=== PATIENT | female | born 1950 | race Caucasian/White ===

== ENCOUNTER 2016-08-02 12:00 | Emergency (ER) | payer OTHER ==
[~2016-08-02] VITALS: Ht 157.5 cm; Wt 91.4 kg
[~2016-08-02 12:00] MED LIST: ANAS1TAB19 PO; ASPI81TA28 PO; BUPR75TA20 PO; CALCTAB5 PO; LORA-741 PO; METO25TA3 PO; MULT-513 PO; NXM/40 PO; SIMV40TA4 PO
[2016-08-02 12:10] VITALS: TEMP 37; Ht 157.5 cm; Wt 91.4 kg
[2016-08-02] MEDS ORDERED: CLB/200 PO (12:38)
--- NOTE | 2016-08-02 13:12 | EMERGENCY ROOM VISIT NOTE ---
History First contact with patient: 12:48 Chief Complaint: ABDOMINAL PAIN Stated Complaint: ABD PAIN Nursing Triage Summary: Triage Note: pt reports she was seen at [facility] this am for abd pain and sent to ed for further eval. pt reports she has had lower abd pain since night. pt reports nausea and diarrhea. History of Present Illness The patient is a 65 year old female who presents to the Emergency Room with complaints of abdominal pain Started 3 days ago in the bottom. Pain waxes and wanes with persistent dull pain that occasionally becomes sharp.. Exacerbated by walking, and increased intraabdominal pressure, with cough, urinating, Associated with bloating and increased flatus. No radiation of pain. Not affected by PO intake or bowel movement. A Tylenol taken initially with minimal relief Had chills on day one, but no measured temperature or night sweats. Her last bowel movement was this morning. She had bowel movement this morning and yesterday. Soft stools but not loose diarrhea. No blood Urination - no burning, some frequency, also has hematuria that she is aware of Nausea this morning, no vomiting, appetite remains ok. Daughter has diarrhea, other diarrhea No CP or dyspnea History of 3 c-sections Past Medical/Surgical History Medical Problems: (1) Breast cancer Social History Smoking Status: Never Smoker Housing Status: lives alone Occupation Status: retired Current/Historical Medications Scheduled Anastrozole (Arimidex), 1 TAB PO DAILY Aspirin (Aspirin Ec), 81 MG PO DAILY Bupropion (Wellbutrin), 75 MG PO DAILY Calcium (Caltrate), 1,200 MG PO DAILY Celecoxib (CeleBREX), 1 CAP PO PRN Ciprofloxacin Tab (Cipro), 500 MG PO BID Esomeprazole Magnesium (Nexium), 40 MG PO DAILY Metoprolol Succ (Toprol Xl) (Toprol-Xl), 12.5 MG PO DAILY Metronidazole (Flagyl), 500 MG PO TID Multivitamins/Minerals (Mvi With Minerals), 1 TAB PO DAILY Simvastatin (Zocor), 40 MG PO QPM Scheduled PRN Lorazepam (Ativan), 0.5 MG PO TID PRN for Anxiety Allergies Coded Allergies: Penicillins (Verified Allergy, Unknown, ., 01/03/14) Physical Exam Vital Signs Date Time Temp Pulse Resp B/P Pulse Ox O2 Delivery O2 Flow Rate FiO2 08/02/16 19:09 77 18 128/65 98 1/1/17 17:50 75 16 148/68 97 Room Air 08/02/16 15:09 68 16 160/91 99 Room Air 08/02/16 12:10 37.0 82 18 /155 95 Room Air Physical Exam GENERAL: alert, well appearing, well nourished, sitting in bed, no acute distress, non-toxic HEAD: Normocephalic, atraumatic. No sinus tenderness. EYES: PERRL, EOMI, normal conjunctiva OROPHARYNX: no exudate, no erythema, lips, buccal mucosa, and tongue normal and mucous membranes are dry NECK: supple, no nuchal rigidity, no adenopathy, non-tender LUNGS: Clear to auscultation. Normal chest wall mechanics, good air entry. No crepitations, crackles, or wheezes HEART: no murmurs, S1 normal and S2 normal CHEST: No reproducible tenderness. ABDOMEN: abdomen soft, non-distended, tenderness to palpation in LUQ and LLQ, as well as suprapubically, normo-active bowel sounds, no masses, no rebound or guarding. BACK: Back is symmetrical on inspection, no deformities, no midline tenderness, no CVA tenderness. SKIN: Warm, pink, dry. No erythema, rashes, or bruising. EXTREMITIES: Grossly normal. Moving all 4 limbs, strength 5/5. No pitting edema. Calves non tender. NEURO: Alert, Ox3. No focal deficits. Normal sensorium, cranial nerves II-XII grossly intact, normal speech. PSYCH: Mood and affect appropriate. Medical Decision & Procedures ER Provider Diagnostic Interpretation: CT SCAN OF THE ABDOMEN AND PELVIS WITH IV CONTRAST CLINICAL HISTORY: Left lower quadrant abdominal pain. COMPARISON STUDY: No priors. TECHNIQUE: Following the IV administration of 118 cc of Optiray 320, CT scan of the abdomen and pelvis is performed from the lung bases to the proximal femora. Images are reviewed in the axial, sagittal, and coronal planes. IV contrast was administered without complication. Automated dose control exposure was utilized. The examination is degraded by large body habitus, and by streak artifact from the body wall abutting the CT gantry. CT DOSE: 885.52 mGy.cm FINDINGS: Lung bases: The heart is normal in size and without pericardial effusion. The lung bases are clear. There is a large hiatal hernia with approximately half of the stomach located in the thoracic cavity. Liver: The contrast-enhanced liver is normal in size, contour, and attenuation. There is no intrahepatic biliary ductal dilatation. The hepatic veins and portal veins are patent. Gallbladder: Unremarkable. Spleen: Normal in size and attenuation. Pancreas: Unremarkable. Adrenal glands: Unremarkable. Kidneys: The contrast enhanced kidneys demonstrate mild cortical atrophy and are without hydronephrosis. The kidneys enhance symmetrically. Abdominal vasculature: The abdominal aorta is normal in course and caliber noting scattered foci of atherosclerotic calcification. Bowel: There is no bowel obstruction. There is moderate diverticulosis of left colon. There is wall thickening with significant associated pericolonic inflammatory stranding and trace fluid involving the proximal sigmoid colon consistent with acute diverticulitis. There is no evidence of diverticular abscess. The appendix is well-visualized and normal. Peritoneum: There is no intraperitoneal free air or abdominal ascites. There is a fat-containing umbilical hernia. Lymphadenopathy: None. Pelvic viscera: The bladder is decompressed and grossly unremarkable. The uterus and adnexa are normal as imaged. Skeletal structures: The skeletal structures are osteopenic. Mild to moderate lumbar sacral spondylosis is observed. No lytic or blastic lesions are seen. There are healed right posterior rib fractures. IMPRESSION: 1. Findings are consistent with acute diverticulitis of the proximal sigmoid colon. There is no intraperitoneal free air or evidence of abscess. 2. Large hiatal hernia. 3. Additional findings as above. Laboratory Results 08/02/16 14:20 Red Blood Count 4.46, Mean Corpuscular Volume 76.0, Mean Corpuscular Hemoglobin 25.3, Mean Corpuscular Hemoglobin Concent 33.3, Mean Platelet Volume 10.2, Neutrophils (%) (Auto) 58.1, Lymphocytes (%) (Auto) 23.1, Monocytes (%) (Auto) 15.9, Eosinophils (%) (Auto) 2.4, Basophils (%) (Auto) 0.3, Neutrophils # (Auto ) 3.44, Lymphocytes # (Auto) 1.37, Monocytes # (Auto) 0.94, Eosinophils # (Auto ) 0.14, Basophils # (Auto) 0.02 08/02/16 14:20 Test 08/02/16 12:37 08/02/16 14:20 Urine Color DK YELLOW Urine Appearance TURBID (CLEAR) Urine pH 5.0 (4.5-7.5) Urine Specific [place] 1.020 (1.000-1.030) Urine Protein TRACE (NEG) Urine Glucose (UA) NEG (NEG) Urine Ketones NEG (NEG) Urine Occult Blood 3+ (NEG) Urine Nitrite NEG (NEG) Urine Bilirubin NEG (NEG) Urine Urobilinogen NEG (NEG) Urine Leukocyte Esterase NEG (NEG) Urine WBC (Auto) 1-5 /hpf (0-5) Urine RBC (Auto) 5-10 /hpf (0-4) Urine Hyaline Casts (Auto) 1-5 /lpf (0-5) Urine Epithelial Cells (Auto) 10-20 /lpf (0-5) Urine Bacteria (Auto) NEG (NEG) White Blood Count 5.92 K/uL (4.8-10.8) Red Blood Count 4.46 M/uL (4.2-5.4) Hemoglobin 11.3 g/dL (12.0-16.0) Hematocrit 33.9 % (37-47) Mean Corpuscular Volume 76.0 fL (80-100) Mean Corpuscular Hemoglobin 25.3 pg (25-34) Mean Corpuscular Hemoglobin Concent 33.3 g/dl (32-36) Platelet Count 236 K/uL (130-400) Mean Platelet Volume 10.2 fL (7.4-10.4) Neutrophils (%) (Auto) 58.1 % Lymphocytes (%) (Auto) 23.1 % Monocytes (%) (Auto) 15.9 % Eosinophils (%) (Auto) 2.4 % Basophils (%) (Auto) 0.3 % Neutrophils # (Auto) 3.44 K/uL (1.4-6.5) Lymphocytes # (Auto) 1.37 K/uL (1.2-3.4) Monocytes # (Auto) 0.94 K/uL (0.11-0.59) Eosinophils # (Auto) 0.14 K/uL (0-0.5) Basophils # (Auto) 0.02 K/uL (0-0.2) RDW Standard Deviation 44.0 fL (36.4-46.3) RDW Coefficient of Variation 15.8 % (11.5-14.5) Immature Granulocyte % (Auto) 0.2 % Immature Granulocyte # (Auto) 0.01 K/uL (0.00-0.02) Anion Gap 6.0 mmol/L (3-11) Est Creatinine Clear Calc Drug Dose 58.8 ml/min Estimated GFR () 68.8 Estimated GFR (Non- 59.4 BUN/Creatinine Ratio 11.0 (10-20) Calcium Level 9.0 mg/dl (8.5-10.1) Total Bilirubin 0.3 mg/dl (0.2-1) Direct Bilirubin < 0.1 mg/dl (0-0.2) Aspartate Amino Transf (AST/SGOT) 44 U/L (15-37) Alanine Aminotransferase (ALT/SGPT) 55 U/L (12-78) Alkaline Phosphatase 133 U/L (45-117) Total Protein 7.5 gm/dl (6.4-8.2) Albumin 3.1 gm/dl (3.4-5.0) Lipase 175 U/L (73-393) Medical Decision The patient was evaluated in room B6. A complete history and physical exam was performed. Etiologies such as appendicitis, diverticulitis, inflammatory bowel disease, renal colic, PUD, biliary pathology, pancreatitis, mesenteric ischemia, aortic pathology, infections, genitourinary, UTI, perforated viscus, as well as others were entertained. Lab work was performed. CBC showed mild anemia, but no leukocytosis, BMP and LFT are grossly normal, and lipase is also within normal limits. Urinalysis showed no evidence hematuria, but no evidence of urinary infection. Upon describing the time logistics of getting a CT including time required to consume the oral contrast prep, patient became upset as she had plans to drive to [place] today. CT scan was encouraged, but patient was adamant about leaving after receiving the blood results. However, eventually the daughter convinced her to undergo the CT scan. Again upon completing the CT scan, patient was adamant about leaving, prior to the radiologist report. However, she was convinced to await radiologist report as preliminary reading by ED attendings revealed concern of abscess. Patient agreeable to await update. CT showed acute diverticulitis of the proximal sigmoid colon with no intraperitoneal free air or evidence of abscess. As such, patient prescribed ciprofloxacin 500mg BID x 10 days and metronidazole 500mg TID x 10 days. She was advised to avoid alcohol while on this regimen and follow up with her PCP in 2 weeks time, especially if there is no improvement in abdominal symptoms. For hematuria, which the patient says this is longstanding, it might also be advisable to follow up with the PCP regarding this matter. For pain control, over the counter medicines regular strength ( 325mg/tab) Tylenol (acetaminophen) 2 tabs every 4-6 hours as needed or regular strength (200 mg/tab) Advil (ibuprofen) 1-2 tabs every 4-6 hours as needed could be taken.rove hydration status. She was told to return for worsening symptoms or if there is development fever, vomiting, or any other concerning symptoms. Patient understands and is agreeable with care plan. Patient discharged home well. Impression Primary Impression: Diverticulitis Additional Impression: Abdominal pain Departure Information Dispostion Home / Self-Care Condition GOOD Prescriptions Metronidazole (Flagyl) 500 Mg Tab 500 MG PO TID for 10 Days, #30 TAB Prov: Alka. Kessler MD 08/02/16 Ciprofloxacin Tab (Cipro) 250 Mg Tab 500 MG PO BID for 10 Days, #40 TAB Prov: Alka. Kessler MD 08/02/16 Referrals Madie Hi M.D. (PCP) Patient Instructions A Signature Page, My [facility]
[2016-08-02 14:22] LABS: MANUAL MICROSCOPIC REQUIRED? NO; REVIEW REQ? NO; URINE APPEARANCE TURBID (CLEAR); URINE BILIRUBIN NEG (NEG); URINE COLOR DK YELLOW; URINE NITRITE NEG (NEG); UROBILINOGEN NEG (NEG)
[2016-08-02 14:42] LABS: BASO % 0.3 %; BASO ABS # 0.02 K/uL (0-0.2); COMPLETE YES; EOS % 2.4 %; HEMATOCRIT 33.9 % (37-47); IG% 0.2 %; LYMPH % 23.1 %; LYMPH ABS # 1.37 K/uL (1.2-3.4); MEAN CORPUSCULAR HEMOGLOBIN 25.3 pg (25-34); MEAN CORPUSCULAR HGB CONC 33.3 g/dl (32-36); MEAN PLATELET VOLUME 10.2 fL (7.4-10.4); MONO % 15.9 %; NEUT % 58.1 %; PLATELET COUNT 236 K/uL (130-400); RED BLOOD COUNT 4.46 M/uL (4.2-5.4); WHITE BLOOD COUNT 5.92 K/uL (4.8-10.8)
[2016-08-02 14:57] LABS: ALT/SGPT 55 U/L (12-78); AST/SGOT 44 U/L (15-37); BLOOD UREA NITROGEN 11 mg/dl (7-18); CARBON DIOXIDE 28 mmol/L (21-32); CHLORIDE 108 mmol/L (98-107); CREATININE 0.99 mg/dl (0.60-1.20); GLUCOSE 83 mg/dl (70-99); POTASSIUM 3.9 mmol/L (3.5-5.1); SODIUM 142 mmol/L (136-145)
[2016-08-02 15:00] LABS: ALKALINE PHOSPHATASE 133 U/L (45-117)
[2016-08-02] MEDS ORDERED: OPTIRAY 320 IV PRN (15:45)
--- NOTE | 2016-08-02 18:24 | DIAGNOSTIC IMAGING REPORT ---
CT SCAN OF THE ABDOMEN AND PELVIS WITH IV CONTRAST CLINICAL HISTORY: Left lower quadrant abdominal pain. COMPARISON STUDY: No priors. TECHNIQUE: Following the IV administration of 118 cc of Optiray 320, CT scan of the abdomen and pelvis is performed from the lung bases to the proximal femora. Images are reviewed in the axial, sagittal, and coronal planes. IV contrast was administered without complication. Automated dose control exposure was utilized. The examination is degraded by large body habitus, and by streak artifact from the body wall abutting the CT gantry. CT DOSE: 885.52 mGy.cm FINDINGS: Lung bases: The heart is normal in size and without pericardial effusion. The lung bases are clear. There is a large hiatal hernia with approximately half of the stomach located in the thoracic cavity. Liver: The contrast-enhanced liver is normal in size, contour, and attenuation. There is no intrahepatic biliary ductal dilatation. The hepatic veins and portal veins are patent. Gallbladder: Unremarkable. Spleen: Normal in size and attenuation. Pancreas: Unremarkable. Adrenal glands: Unremarkable. Kidneys: The contrast enhanced kidneys demonstrate mild cortical atrophy and are without hydronephrosis. The kidneys enhance symmetrically. Abdominal vasculature: The abdominal aorta is normal in course and caliber noting scattered foci of atherosclerotic calcification. Bowel: There is no bowel obstruction. There is moderate diverticulosis of left colon. There is wall thickening with significant associated pericolonic inflammatory stranding and trace fluid involving the proximal sigmoid colon consistent with acute diverticulitis. There is no evidence of diverticular abscess. The appendix is well-visualized and normal. Peritoneum: There is no intraperitoneal free air or abdominal ascites. There is a fat-containing umbilical hernia. Lymphadenopathy: None. Pelvic viscera: The bladder is decompressed and grossly unremarkable. The uterus and adnexa are normal as imaged. Skeletal structures: The skeletal structures are osteopenic. Mild to moderate lumbar sacral spondylosis is observed. No lytic or blastic lesions are seen. There are healed right posterior rib fractures. IMPRESSION: 1. Findings are consistent with acute diverticulitis of the proximal sigmoid colon. There is no intraperitoneal free air or evidence of abscess. 2. Large hiatal hernia. 3. Additional findings as above. Electronically signed by: Chung Patel M.D. 08/02/2016 6:22 PM
[2016-08-02] MEDS ORDERED: METR-163 PO (18:48)
[2016-08-02] MEDS ORDERED: CIPR1TAB11 PO (18:48)
[2016-08-02 19:09] VITALS: BP 128/65; PULSE 77; O2SAT 98
--- NOTE | 2016-08-03 13:26 | EMERGENCY ROOM VISIT NOTE ---
History Report prepared by Ana: Trinidad Shipman Under the Supervision of: Dr. Akbar Mijares D.O. First contact with patient: 12:48 Chief Complaint: ABDOMINAL PAIN Stated Complaint: ABD PAIN Nursing Triage Summary: Triage Note: pt reports she was seen at [facility] this am for abd pain and sent to ed for further eval. pt reports she has had lower abd pain since night. pt reports nausea and diarrhea. History of Present Illness The patient is a 65 year old female who presents to the Emergency Room with complaints of intermittent lower abdominal pain that started 3 days ago. She describes the pain as pressure but states that it becomes sharp with movement or urination. The pain is unaffected by bowel movements. The pain does not radiate. The patient took Tylenol but it offered minimal relief of her pain. She is also experiencing nausea and soft stools but denies vomiting and diarrhea. Additionally, she is experiencing chills but has not measured a fever. She also denies chest pain, shortness of breath, and diaphoresis. The patient has a history of 3 C-sections and denies any other previous abdominal surgeries. The patient adds that she recently had a colonoscopy and her GI doctor told her that she had diverticulosis. Source of History: patient Onset: 3 days ago Position: abdomen (lower) Timing: intermittent Associated Symptoms: + chills, + nausea, No SOB, No chest pain, No diaphoresis, No diarrhea, No fevers, No vomiting Note: soft stools Review of Systems See HPI for pertinent positives & negatives. A total of 10 systems reviewed and were otherwise negative. Past Medical & Surgical Medical Problems: (1) Breast cancer Family History No pertinent family history Social History Smoking Status: Never Smoker Housing Status: lives alone Occupation Status: retired Current/Historical Medications Scheduled Anastrozole (Arimidex), 1 TAB PO DAILY Aspirin (Aspirin Ec), 81 MG PO DAILY Bupropion (Wellbutrin), 75 MG PO DAILY Calcium (Caltrate), 1,200 MG PO DAILY Celecoxib (CeleBREX), 1 CAP PO PRN Ciprofloxacin Tab (Cipro), 500 MG PO BID Esomeprazole Magnesium (Nexium), 40 MG PO DAILY Metoprolol Succ (Toprol Xl) (Toprol-Xl), 12.5 MG PO DAILY Metronidazole (Flagyl), 500 MG PO TID Multivitamins/Minerals (Mvi With Minerals), 1 TAB PO DAILY Simvastatin (Zocor), 40 MG PO QPM Scheduled PRN Lorazepam (Ativan), 0.5 MG PO TID PRN for Anxiety Allergies Coded Allergies: Penicillins (Verified Allergy, Unknown, ., 01/03/14) Physical Exam Vital Signs Date Time Temp Pulse Resp B/P Pulse Ox O2 Delivery O2 Flow Rate FiO2 08/02/16 19:09 77 18 128/65 98 08/02/16 17:50 75 16 148/68 97 Room Air 08/02/16 15:09 68 16 160/91 99 Room Air 08/02/16 12:10 37.0 82 18 /155 95 Room Air Physical Exam CONSTITUTIONAL/VITAL SIGNS: Reviewed / noted above. GENERAL: Non-toxic in appearance. INTEGUMENTARY: Warm, dry, and [employer]. HEAD: Normocephalic. EYES: without scleral icterus or trauma. ENT/OROPHARYNX: clear and moist. LYMPHADENOPATHY/NECK: Is supple without lymphadenopathy or meningismus. RESPIRATORY: Lungs clear and equal. CARDIOVASCULAR: Regular rate and rhythm. GI/ABDOMEN: Soft and tender to palpation of left mid and upper abdomen. No organomegaly or pulsatile mass. No rebound or guarding. Normal bowel sounds. EXTREMITIES: Warm and well perfused. BACK: No CVA tenderness. NEUROLOGICAL: Intact without focal deficits. PSYCHIATRIC: normal affect. MUSCULOSKELETAL: Normally developed with good muscle tone. Medical Decision & Procedures ER Provider Diagnostic Interpretation: CT scan of the abdomen and pelvis: Reveals findings suggestive of acute diverticulitis. Laboratory Results 08/02/16 14:20 Red Blood Count 4.46, Mean Corpuscular Volume 76.0, Mean Corpuscular Hemoglobin 25.3, Mean Corpuscular Hemoglobin Concent 33.3, Mean Platelet Volume 10.2, Neutrophils (%) (Auto) 58.1, Lymphocytes (%) (Auto) 23.1, Monocytes (%) (Auto) 15.9, Eosinophils (%) (Auto) 2.4, Basophils (%) (Auto) 0.3, Neutrophils # (Auto ) 3.44, Lymphocytes # (Auto) 1.37, Monocytes # (Auto) 0.94, Eosinophils # (Auto ) 0.14, Basophils # (Auto) 0.02 08/02/16 14:20 Test 08/02/16 12:37 08/02/16 14:20 Urine Color DK YELLOW Urine Appearance TURBID (CLEAR) Urine pH 5.0 (4.5-7.5) Urine Specific [place] 1.020 (1.000-1.030) Urine Protein TRACE (NEG) Urine Glucose (UA) NEG (NEG) Urine Ketones NEG (NEG) Urine Occult Blood 3+ (NEG) Urine Nitrite NEG (NEG) Urine Bilirubin NEG (NEG) Urine Urobilinogen NEG (NEG) Urine Leukocyte Esterase NEG (NEG) Urine WBC (Auto) 1-5 /hpf (0-5) Urine RBC (Auto) 5-10 /hpf (0-4) Urine Hyaline Casts (Auto) 1-5 /lpf (0-5) Urine Epithelial Cells (Auto) 10-20 /lpf (0-5) Urine Bacteria (Auto) NEG (NEG) White Blood Count 5.92 K/uL (4.8-10.8) Red Blood Count 4.46 M/uL (4.2-5.4) Hemoglobin 11.3 g/dL (12.0-16.0) Hematocrit 33.9 % (37-47) Mean Corpuscular Volume 76.0 fL (80-100) Mean Corpuscular Hemoglobin 25.3 pg (25-34) Mean Corpuscular Hemoglobin Concent 33.3 g/dl (32-36) Platelet Count 236 K/uL (130-400) Mean Platelet Volume 10.2 fL (7.4-10.4) Neutrophils (%) (Auto) 58.1 % Lymphocytes (%) (Auto) 23.1 % Monocytes (%) (Auto) 15.9 % Eosinophils (%) (Auto) 2.4 % Basophils (%) (Auto) 0.3 % Neutrophils # (Auto) 3.44 K/uL (1.4-6.5) Lymphocytes # (Auto) 1.37 K/uL (1.2-3.4) Monocytes # (Auto) 0.94 K/uL (0.11-0.59) Eosinophils # (Auto) 0.14 K/uL (0-0.5) Basophils # (Auto) 0.02 K/uL (0-0.2) RDW Standard Deviation 44.0 fL (36.4-46.3) RDW Coefficient of Variation 15.8 % (11.5-14.5) Immature Granulocyte % (Auto) 0.2 % Immature Granulocyte # (Auto) 0.01 K/uL (0.00-0.02) Anion Gap 6.0 mmol/L (3-11) Est Creatinine Clear Calc Drug Dose 58.8 ml/min Estimated GFR () 68.8 Estimated GFR (Non- 59.4 BUN/Creatinine Ratio 11.0 (10-20) Calcium Level 9.0 mg/dl (8.5-10.1) Total Bilirubin 0.3 mg/dl (0.2-1) Direct Bilirubin < 0.1 mg/dl (0-0.2) Aspartate Amino Transf (AST/SGOT) 44 U/L (15-37) Alanine Aminotransferase (ALT/SGPT) 55 U/L (12-78) Alkaline Phosphatase 133 U/L (45-117) Total Protein 7.5 gm/dl (6.4-8.2) Albumin 3.1 gm/dl (3.4-5.0) Lipase 175 U/L (73-393) Laboratory results as stated above per my review. ED Course 1250: The medical records secretary evaluated the patient at this time. We discussed her findings and potential treatment plans. 1351: Previous medical records were reviewed. The patient was evaluated in room B6. A complete history and physical examination was performed. Medical Decision Differential considered: pancreatitis, hepatitis, or acute cholecystitis, AAA, UTI, pyelonephritis, kidney stones, appendicitis, diverticulitis, shingles, bowel obstruction mesenteric ischemia, intussusception, hernia, ovarian torsion , ruptured ovarian cyst, ectopic , . This is a 65-year-old female who presents to the ED with a chief complaint of abdominal pain. The patient states that she has a dull pain mostly in the left side that is worse with movement and palpating the area. She has had the symptoms for about 3 days. She has some associated nausea. She denies any vomiting or diarrhea. She stated the pain initially came and went but seems to be more consistent. The patient has some tenderness to the left mid and upper quadrant on exam. She is afebrile. Vital signs are stable. CBC is unremarkable, chemistry panel was unremarkable and urine did not show infection. CT scan of the abdomen and pelvis shows findings suggesting acute diverticulitis. The patient was treated with Cipro and Flagyl. She was given appropriate discharge structures. She will follow-up as an outpatient. She was seen with resident. Impression Primary Impression: Diverticulitis Scribe Attestation The scribe's documentation has been prepared under my direction and personally reviewed by me in its entirety. I confirm that the note above accurately reflects all work, treatment, procedures, and medical decision making performed by me. Departure Information Prescriptions Metronidazole (Flagyl) 500 Mg Tab 500 MG PO TID for 10 Days, #30 TAB Prov: Alka. Kessler MD 08/02/16 Ciprofloxacin Tab (Cipro) 250 Mg Tab 500 MG PO BID for 10 Days, #40 TAB Prov: Alka. Kessler MD 08/02/16 Referrals Madie Hi M.D. (PCP) Patient Instructions A Signature Page, My [facility]
== END 2016-08-02 19:10 | disposition home or self-care (01) ==
LOC: C.EDB 12:01
DX: K57.32 Diverticulitis of large intestine without perforation or abscess without bleeding (principal); K42.9 Umbilical hernia without obstruction or gangrene; M47.896 Other spondylosis, lumbar region; K44.9 Diaphragmatic hernia without obstruction or gangrene; Z85.3 Personal history of malignant neoplasm of breast

== ENCOUNTER → 2017-02-26 | Outpatient (CLI) | payer OTHER ==
[~2017-02-26] MED LIST changes: +CLB/200 PO
--- NOTE | 2017-03-01 07:44 | MAMMOGRAPHY REPORT ---
UNILATERAL LEFT DIGITAL DIAGNOSTIC MAMMOGRAM TOMOSYNTHESIS WITH CAD: 02/26/2017 CLINICAL HISTORY: History of left breast cancer status post lumpectomy. The patient reports she has had occasional tender spots in different areas within her left breast since November. One week ago she al so had sharp pain behind her nipple which resolved after removing her bra. She has had no further pa in since that time. She denies palpable lumps, nipple discharge, or other complaints. TECHNIQUE: Breast tomosynthesis in addition to standard 2D mammography was performed. Current study was also evaluated with a Computer Aided Detection (CAD) system. Left CC and MLO 2-D and tomosynthes is images and spot magnification left CC and ML views were obtained. COMPARISON: Comparison is made to exams dated: 06/08/2016 mammogram, 11/21/2015 mammogram, 05/21/2015 ultrasound, 05/21/2015 mammogram, 05/08/2015 mammogram, and 05/07/2014 mammogram - [facility]. BREAST COMPOSITION: There are scattered areas of fibroglandular density in the left breast. FINDINGS: There are stable postsurgical changes in the left upper inner quadrant status post lumpect malik, including stable density and architectural distortion at the surgical bed. A linear scar marker denotes a scar on the left breast. There are no suspicious masses, calcifications, or areas of arch itectural distortion noted in the left breast. There has been no significant interval change compare d to prior exams. IMPRESSION: ACR BI-RADS CATEGORY 2: BENIGN Stable postsurgical changes in the left breast status post lumpectomy, without mammographic evidence of malignancy in the left breast. No etiology for intermittent left breast pain evident. Recommend clinical follow-up for left breast pain, and recommend bilateral diagnostic tomosynthesis mammograms which are due June 2017. The patient has been verbally notified of the results. Approximately 10% of breast cancers are not detected with mammography. A negative mammographic report should not delay biopsy if a clinically suggestive mass is present. Vinita Barboza M.D. /:02/26/2017 14:37:12 Able Bodied Watchman: Oniel ROWE)(Sandra), [facility] letter sent: Normal 1/2 BI-RADS Code: ACR BI-RADS Category 2: Benign
== END | disposition home or self-care (01) ==
LOC: C.MAMM 13:46
PROVIDERS: ATTEND Internal Medicine
DX: N64.4 Mastodynia (principal); Z85.3 Personal history of malignant neoplasm of breast

== ENCOUNTER → 2017-06-01 | Outpatient (CLI) | payer OTHER ==
[2017-06-01 14:27] VITALS: BP 169/77; PULSE 74; TEMP 37.2; O2SAT 99
--- NOTE | 2017-06-01 16:58 | Radiation Oncology Follow-Up ---
Radiation Oncology Follow-Up Date of Visit Jun 01, 2017. Reason For Visit Annual follow-up Radiation Completion Date 09/24/15 Diagnosis (1) Breast cancer Status: Resolved Onset Date: 05/21/2015 Histology Subtype: ductal Stage: l (A) Permanent Comment: DIAGNOSIS: Left breast, invasive ductal carcinoma, grade 1, ER/VT positive, Her2 negative, pT1bN0, stage IA TREATMENT: Ultrasound-guided biopsy 05/21/2015 Lumpectomy/SLN - 06/12/2015 Status post completion of radiation therapy 09/24/2015 received 6640 cGy Last Edited By: Annie Acevedo on Oct 09, 2015 16:24 History of Present Illness Ms. Gonzales is a 65-year-old female who recently presented with an abnormal mammogram on 05/08/2015. The mammogram showed a lobular 12 mm mass in the left upper quadrant which appears progressively increased compared to prior exams. She then underwent dedicated unilateral left diagnostic mammography and targeted ultrasound on 2014 which revealed a persistent 12 mm mass in the left upper inner quadrant. Dedicated ultrasound showed a mass in the 9 to 9:30 position that measured 9 mm. She underwent an ultrasound-guided biopsy on 05/21/2015 which revealed grade 1 invasive ductal carcinoma in the left breast. There is no lymphovascular space invasion or perineural invasion identified in the tumor was estrogen receptor positive, progesterone receptor positive and HER-2 negative she was seen and evaluated by Dr. Yuly Humphreys who recommended either mastectomy or lumpectomy and adjuvant radiation therapy. The patient elected for a lumpectomy and sentinel lymph node biopsy which was completed on 06/12/2015. Her pathology revealed a 1 cm invasive ductal carcinoma that was unifocal and unicentric. There is no evidence of DCIS, lymphovascular space invasion. The margins were negative and the closest margin was 4 mm. 4 sentinel lymph nodes were examined in all of the 4 lymph nodes were negative. The tumor was identified as grade 1 out of 3. Subsequently, she was referred to Dr. Oracio Jaimes who discussed anti-hormonal therapy and potential systemic therapy. He has ordered a Pro[employer] genetic test to determine the role of chemotherapy and the results are still pending. We are now seeing her in consultation to evaluate the role of adjuvant radiation therapy. All options of radiation therapy were reviewed with her. She was not a candidate for accelerated partial breast treatment. Due to the size of her breasts she was not a candidate for hypo-fractionation and was therefore treated with conventional therapy Interim History She has noted no changes to her breast. She detected no masses or tenderness no change of the axilla. She's had no swelling of her arm. She is up-to-date on mammography. She is followed in medical oncology. She is on Arimidex. She denies any side effects. She did have an area of tenderness in the lateral aspect of the left breast in January. She saw her primary care physician and a mammogram was ordered. This showed stable postsurgical changes in the left breast status post lumpectomy, without mammographic evidence of malignancy in the left breast. No etiology for intermittent left breast pain evident. Recommend clinical follow-up of left breast pain, and recommended bilateral diagnostic mammograms June 2017. This discomfort has resolved. She has been very emotionally and physically stressed over the past several months. Her daughter was diagnosed with a malignant tumor of the esther. She underwent radiation therapy [facility]. The patient has been caring for her grandchildren. Her daughter has 5-year-old triplets. She makes frequent trips to [place] to care for the children. Allergies Coded Allergies: Penicillins (Verified Allergy, Unknown, ., 01/03/14) Home Medications Scheduled Anastrozole (Arimidex), 1 TAB PO DAILY Aspirin (Aspirin Ec), 81 MG PO DAILY Bupropion (Wellbutrin), 75 MG PO DAILY Calcium (Caltrate), 1,200 MG PO DAILY Esomeprazole Magnesium (Nexium), 40 MG PO DAILY Metoprolol Succ (Toprol Xl) (Toprol-Xl), 12.5 MG PO DAILY Multivitamins/Minerals (Mvi With Minerals), 1 TAB PO DAILY Simvastatin (Zocor), 40 MG PO QPM Scheduled PRN Lorazepam (Ativan), 0.5 MG PO TID PRN for Anxiety Review of Systems Gastrointestinal: Symptoms: WNL Oral: Symptoms: No Problems Respiratory: Symptoms: WNL Urinary: Symptoms: WNL Skin: Symptoms: No Problems Other Skin Symptoms: Gets twinges of pain here and there Breast: Right Upper Arm Measurement: 34.0 Right Mid Arm Measurement: 25.2 Right Wrist Measurement: 15.5 Left Upper Arm Measurement: 35.0 Left Mid Arm Measurement: 24.0 Left Wrist Measurement: 15.4 Arm Dominence: Right Physical Exam Vital Signs Date Time Temp Pulse Resp B/P (MAP) Pulse Ox O2 Delivery O2 Flow Rate FiO2 06/01/17 14:27 37.2 74 16 169/77 99 Fatigue: None General Appearance: no apparent distress Eyes: normal inspection, EOMI ENT: normal ENT inspection, hearing grossly normal Neck: no adenopathy, thyroid normal Respiratory/Chest: lungs clear, no respiratory distress, no accessory muscle use Breast: Breast examination reveals well-healed incisions of the left breast. There are no masses or tenderness no axillary adenopathy. She has no skin retractions or nipple changes. Using the [place] score cosmesis she has a excellent outcome. The right breast showed no masses or tenderness and no axillary adenopathy. Cardiovascular: regular rate, rhythm, no gallop, no murmur Abdomen: non tender, soft, no organomegaly Extremities: no pedal edema Neurologic/Psychiatric: no motor/sensory deficits, alert Skin: warm/dry Assessment & Plan Plan: Continue scheduled mammography. She'll have bilateral mammograms 2016. He follow-up with medical oncology. She continues on Arimidex. She is seen and examined by Dr. Jaimes. We asked her to return to our office in 1 year. She may call if she has any questions or concerns in the interim. Assessment & Plan (Attending) ADDENDUM: I agree with note created by Annie Acevedo PA-C. I reviewed the patient's chart and information with her. I have examined and evaluated the patient. I reviewed relevant clinical information and answered the patient's and /or family's questions. MAID HOUSEKEEPER Total Time In Follow-Up I spent 20 minutes speaking to the patient and formulated examination. I spent 15 minutes reviewing information and completing this note. AK Total Time (Attending) In Follow-Up I spent 15 minutes examining and counseling the patient. MAID HOUSEKEEPER Copy To Yuly Humphreys MD; Madie Hi M.D.; Oracio Jaimes M.D. Problem Qualifiers (1) Breast cancer: Breast location: central portion of breast Estrogen receptor status: positive Patient sex: female Laterality: left Qualified Codes: C50.112 - Malignant neoplasm of central portion of left female breast; Z17.0 - Estrogen receptor positive status [ER+]
== END | disposition home or self-care (01) ==
LOC: C.ONC 14:21
PROVIDERS: ATTEND Physician Assistant Medical
DX: Z08 Encounter for follow-up examination after completed treatment for malignant neoplasm (principal); Z92.3 Personal history of irradiation; Z85.3 Personal history of malignant neoplasm of breast

== ENCOUNTER → 2017-06-22 | Outpatient (CLI) | payer OTHER ==
[~2017-06-22] MED LIST changes: -CLB/200 PO
== END | disposition home or self-care (01) ==
LOC: C.MAMM 13:37
PROVIDERS: ATTEND Internal Medicine
DX: Z12.31 Encounter for screening mammogram for malignant neoplasm of breast (principal); Z85.3 Personal history of malignant neoplasm of breast

== ENCOUNTER 2020-03-14 07:15 | Observation (INO) ==
--- NOTE | 2020-02-08 16:11 | PAT Medication Instructions ---
Medication Instructions Date of Service February 08, 2020 Home Medications acetaminophen 325 mg PO QID PRN anastrozole [Arimidex] 1 mg PO QAM aspirin [Aspir-81] 81 mg PO QAM atorvastatin 40 mg PO PM bupropion HCl 300 mg PO QAM calcium carbonate [Calcium 600] 1,200 mg PO QAM esomeprazole magnesium 40 mg PO QAM lorazepam [Ativan] 0.5 mg PO DAILY PRN melatonin 5 mg PO HS PRN metoprolol succinate 12.5 mg PO QAM multivitamin 1 tab PO QAM sertraline 100 mg PO QAM Continue as directed anastrozole [Arimidex] 1 mg PO QAM (unless surgeon instructs otherwise) DO NOT take the morning of surgery multivitamin 1 tab PO QAM calcium carbonate [Calcium 600] 1,200 mg PO QAM Take morning of surgery With a small sip of water, OTHERWISE NOTHING TO EAT OR DRINK AFTER MIDNIGHT: sertraline 100 mg PO QAM metoprolol succinate 12.5 mg PO QAM esomeprazole magnesium 40 mg PO QAM lorazepam [Ativan] 0.5 mg PO DAILY PRN (if needed) bupropion HCl 300 mg PO QAM aspirin [Aspir-81] 81 mg PO QAM acetaminophen 325 mg PO QID PRN (okay to take up to 4 hours prior to surgery if needed) Take evening before surgery acetaminophen 325 mg PO QID PRN (if needed) atorvastatin 40 mg PO PM melatonin 5 mg PO HS PRN (if needed) Other Notes If you have any questions please call us at [phone] or [phone] or [phone] or [phone]
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
--- NOTE | 2020-02-09 15:43 | XRay Report ---
XR chest Pre-admission PA/Lat CLINICAL HISTORY: PAT COMPARISON STUDY: 12/14/2013 FINDINGS: Lungs are clear. Small hiatal hernia. Diaphragms are smooth. No significant cardiac enlarge ment. IMPRESSION: No acute process. Small hiatal hernia. ACT 112: Negative or not required by law. The above report was generated using voice recognition software. It may contain grammatical, syntax or spelling errors. Electronically signed by: Garcia Shell M.D. 02/09/2020 3:41 PM
[2020-02-09 15:56] LABS: Basophils # (auto) 0.02 K/uL (0-0.2); Basophils % (auto) 0.4 %; Eosinophils # (auto) 0.12 K/uL (0-0.5); Eosinophils % (auto) 2.4 %; Hematocrit (blood only) 35.9 % (37-47); Hemoglobin 11.6 g/dL (12.0-16.0); Immature Granulocytes # (auto) 0.01 K/uL (0.00-0.02); Immature Granulocytes % (auto) 0.2 %; Lymphocytes # (auto) 1.79 K/uL (1.2-3.4); Lymphocytes % (auto) 36.5 %; Mean Corpuscular Hemoglobin 24.8 pg (25-34); Mean Corpuscular Hgb Conc 32.3 g/dL (32-36); Mean Corpuscular Volume 76.9 fL (80-100); Mean Platelet Volume 10.7 fL (7.4-10.4); Monocytes # (auto) 0.49 K/uL (0.11-0.59); Neutrophils # (auto) 2.48 K/uL (1.4-6.5); Neutrophils % (auto) 50.5 %; Platelet Count 257 K/uL (130-400); RDW Coefficient of Variation 16.4 % (11.5-14.5); RDW Standard Deviation 45.9 fL (36.4-46.3); Red Blood Count 4.67 M/uL (4.2-5.4); White Blood Count 4.91 K/uL (4.8-10.8)
[2020-02-09 16:08] LABS: Appearance Urine Clear (Clear); Bacteria Urine Automated Negative (Negative); Bilirubin Urine Negative (Negative); Blood Urine 1+ (Negative); Cast Urine Automated 0 /lpf (0-5); Color Urine Yellow; Epithelial Cell Urine Auto 0-5 /lpf (0-5); Glucose Urine UA Negative (Negative); Ketones Urine Negative (Negative); Leukocyte Esterase Urine Negative (Negative); Nitrite Urine Negative (Negative); Protein Urine Negative (Negative); RBC Urine Automated 0-4 /hpf (0-4); Specific Gravity Urine 1.017 (1.000-1.030); Urobilinogen Urine Negative (Negative); WBC Urine Automated 0 /hpf (0-5)
[2020-02-09 16:11] LABS: Prothrombin Time 10.7 Seconds (9.0-12.0)
[2020-02-09 16:14] LABS: Albumin Level 3.5 gm/dl (3.4-5.0); BUN Creatinine Ratio 17.5 (10-20); Calcium 9.4 mg/dl (8.5-10.1); Creatinine Clr Calc Pharmacy 39.9 ml/min; Est GFR (African American) 47.3; Est GFR (Non-African American) 40.8; Potassium 4.1 mmol/L (3.5-5.1)
[2020-02-10 06:51] LABS: Estimated Average Glucose 128 mg/dl; Hemoglobin A1C 6.1 % (4.5-5.6)
--- NOTE | 2020-02-10 07:30 | Electrocardiogram Report ---
Test Reason : Blood Pressure : / mmHG Vent. Rate : 064 BPM Atrial Rate : 064 BPM P-R Int : 184 ms QRS Dur : 084 ms QT Int : 414 ms P-R-T Axes : 051 017 033 degrees QTc Int : 427 ms Normal sinus rhythm Normal ECG When compared with ECG of 18-APR-2018 16:34, No significant change was found Confirmed by Fransico Ac ([id number]) on 02/10/2020 7:30:01 AM Referred By: Deonte Bay Confirmed By:Fransico Ac
--- NOTE | 2020-03-13 19:51 | History and Physical Report ---
DATE OF ADMISSION: 03/14/2020 CHIEF COMPLAINT: Chronic left knee pain. HISTORY OF PRESENT ILLNESS: This is a 69-year-old female patient of Dr. Bay'fausto complaining of chronic left knee pain, longstanding, now progressively getting worse. The patient has failed conservative treatment including home exercise program and the use of Tylenol. The patient has been diagnosed with end-stage osteoarthritis per clinical and radiographic exams with bone on bone. The patient has increased pain with weightbearing activities and her pain does interfere with her activities of daily living. The patient wished to proceed with a left total knee arthroplasty. PAST MEDICAL HISTORY: Congestive heart failure, coronary artery disease, status post an NE, heart murmur, hypertension, hypercholesterolemia, sleep apnea, anxiety, anemia, osteoarthritis, acid reflux, obesity, breast cancer on the left. SOCIAL HISTORY: Nonsmoker, nondrinker. FAMILY HISTORY: Noncontributory. REVIEW OF SYSTEMS: Chronic left knee pain, otherwise denies any shortness of breath, chest pain, nausea, vomiting or any other joint complaints. PAST SURGICAL HISTORY: 1. Bilateral eyes corneal replacement. 2. Right total knee replacement. 3. Left wrist. 4. Bilateral foot surgery. 5. Breast biopsy. 6. x3. MEDICATIONS: 1. Lorazepam 0.5 mg as needed. 2. Metoprolol 25 mg 1/2 tablet daily. 3. Bupropion 300 mg daily. 4. Omeprazole 40 mg daily before meals. 5. Zoloft 100 mg daily. 6. Shingrix 50 mcg/0.5 mL injection intramuscularly every 60- 180 days. 7. Atorvastatin 40 mg daily. 8. Arimidex 1 mg daily. 9. Jublia 10% solution apply to affected area topically for nails. 10. Aspirin 81 mg daily. 11. Calcium 600 two times daily. 12. Acetaminophen as needed. 13. Melatonin 5 mg as needed at night. 14. Multivitamin daily. ALLERGIES: PENICILLIN. PHYSICAL EXAMINATION: GENERAL: Well-developed, well-nourished 69-year-old female in no acute distress. She is alert and oriented x3 and pleasant. HEENT: Normocephalic, atraumatic. Extraocular motions are intact. Pupils are equal and reactive to light. HEART: Regular rate and rhythm, no murmurs. LUNGS: Clear. ABDOMEN: Soft, nontender, bowel sounds present. EXTREMITIES: Left knee joint line tenderness. Limited range of motion with crepitation. Mild effusion, 4/5 strength with pain. Neurologically and neurovascularly, she is intact in the left lower extremity. DIAGNOSES: Left knee end-stage osteoarthritis, congestive heart failure, coronary artery disease, status post myocardial infarction, heart murmur, hypertension, hypercholesterolemia, sleep apnea, anxiety, anemia, osteoarthritis, acid reflux, obesity, history of breast cancer. PLAN: The patient was advised of her diagnosis. Indications, risks, benefits, postop course have all been reviewed. The patient wished to proceed with a left total knee arthroplasty. Necessary consent forms, preoperative testing and clearances will be obtained. EVI
[~2020-03-14 07:15] MED LIST changes: +ACETAMINOPHEN 500 MG TAB PO SCH; -ANAS1TAB19 PO; -ASPI81TA28 PO; +BACITRACIN INJ 50,000 UNIT VIAL ONE; +BUPIVACAINE 0.5 % 5 MG/1 ML PF 10ML VIAL ONE; -BUPR75TA20 PO; -CALCTAB5 PO; +CeleBREX 200 MG CAP PO SCH; +FAMOTIDINE 20 MG TAB PO SCH; +GABAPENTIN 300 MG CAP PO SCH; +LIDOCAINE HCL 2% 2 ML VIAL/AMP(20MG/ML) INFIL ONE; -LORA-741 PO; -METO25TA3 PO; +METOCLOPRAMIDE HCL 10 MG TABLET PO SCH; +MIDAZOLAM HCL 1 MG/ML 2ML VIAL ONE; -MULT-513 PO; -NXM/40 PO; +ORTHO JOINT ANESTHETIC ONE; +PHENYLEPHRINE 100MCG/ML 5ML SYR ONE; +PROPOFOL IV EMULSION 10 MG/ML 20 ML VIAL IV ONE; +ROPIVACAINE 0.5% 5 MG/ML 30 ML VIAL ONE; +ROPIVACAINE 0.5% HCL/PF 150 MG, BUPIVACAINE 0.5% MPF 30 ML, EPINEPHrine 30MG/30ML (OR U... INSTIL SCH; -SIMV40TA4 PO; +TRANEXAMIC ACID 1,000 MG **IV Intra-op IV SCH; +TRANEXAMIC ACID 1,000 MG **IV Pre-op IV SCH; +VANCOMYCIN HCL 1,250 MG in SODIUM CHLORIDE 0.9% 250 ML IV SCH; +dexAMETHasone 4 MG TAB PO SCH; +ePHEDrine sulfate 50 MG/ML SYR ONE; +fentaNYL citrate 100 MCG/2 ML VIAL ONE
--- NOTE | 2020-03-14 07:42 | History & Physical Bridge Note ---
Date of Service March 14, 2020 History & Physical Bridge Note I have examined the patient, reviewed the History & Physical and in the interval since the performance of the History & Physical I have noted the following changes of clinical significance: no changes noted
[2020-03-14] MEDS ORDERED: LACTATED RINGER'S 1,000 ML IV SCH (08:30)
[2020-03-14] MEDS ORDERED: LACTATED RINGER'S 500 ML IV ONE (08:45)
[2020-03-14] MEDS: CLINDAMYCIN 600 MG/54 ML D5W IV ONE ×2 (08:59→09:23)
[2020-03-14] MEDS ORDERED: ATROPINE SULFATE 0.1 MG/ML 10ML SYR IV PRN (09:00)
[2020-03-14] MEDS ORDERED: ePHEDrine sulfate 50 MG/ML AMP IV PRN (09:00)
--- NOTE | 2020-03-14 10:27 | Anesthesiology Progress Note ---
Date of Service March 14, 2020 Anesthesia Post Procedure Vital Signs Vital Signs: Temp Pulse Resp BP Pulse Ox 03/14/20 07:50 37.0 C 85 20 115/67 94 Pain Intensity Left Knee: Pain Intensity: 0 Transfer of Care Handoff Completed per policy Notes Mental Status: alert / awake / arousable and participated in evaluation Patient Amnestic to Procedure: Yes Nausea / Vomiting: adequately controlled Pain: adequately controlled Airway Patency, RR, SpO2: stable & adequate BP & HR: stable & adequate Hydration State: stable & adequate Anesthetic Complications: no major complications apparent
--- NOTE | 2020-03-14 11:08 | Operative Report ---
Post Operative Report Pre & Post Diagnosis Operation Date: 03/14/20 09:45 Pre-Op Diagnosis: LEFT KNEE OSTEOARTHRITIS Post-Op Diagnosis: LEFT KNEE OSTEOARTHRITIS I identified the patient and participated in the time-out.: Yes Procedure Operation Date: 03/14/20 09:45 Actual Procedures p Left Total Knee Arthroplasty(Left) - Deonte Bay MD Surgeon Deonte Bay MD Bessemer Bottom Maker Noah MARCOS Estimated Blood Loss 5 Findings Consistent with Post-Op Diagnosis Specimens Bone cuts Drains 2 Hemovac Anesthesia Type MAC Spinal Regional Complications none Disposition Accompanied Patient To Recovery: No Disposition: Recovery Room Indications 69-year-old female with progressive osteoarthritis left knee failed conservative management. Patient has successful right knee replacement in the past. Left knee has limited range of motion and severe osteoarthritis patellofemoral joint with lateral Patella large osteophytes and tricompartmental DJD. Description of Procedure Patient taken to the operating room placed supine on the operating table and anesthetized under spinal MAC regional anesthesia. Exam under anesthesia demonstrated moderately obese upper thigh with range of motion of 0 through 95 degrees no instability laterally aligned patella with marked patellofemoral crepitation. A pneumatic tourniquet was placed about the thigh of the left lower extremity. The left lower extremity was prepped and draped in usual fashion. Leg was elevated exsanguinated with an Esmarch bandage and the pneu matic was raised to 325 mm mercury. An anterior incision was made across the left knee. The skin was incised longitudinally subcutaneous flaps were elevated and an incision was made through the medial retinaculum extending up into the mid third of the quadriceps tendon and extended down to the medial tibial tubercle. Intra-articular findings demonstrated tricompartmental osteoarthritis most severe in the patellofemoral joint with significant bone loss in the lateral facet of the patella and very large osteophytes and a large loose body in suprapatellar region. There were degenerative change of the ACL. The knee was exposed by excising the infrapatellar fat pad, excising the meniscal remnants and anterior cruciate ligament. Any inflamed synovial tissue was resected. The fat pad over the anterior femur was resected for placement of the component in that area. The lateral synovial bands were release. Appropriate releases were performed to balance ligaments. This required medial posterior medial releases. Large loose body was excised from suprapatellar region. The femur was exposed. The custom femoral cutting block was pinned in position. The distal femoral cutting block was applied. The distal femoral cut was made with the oscillating saw. Patient had significant osteopenia and likely osteoporosis. The size 7, 4-in-1 cutting block was placed. The anterior and posterior chamfer cuts were made. The knee was extended and a subperiosteal peel lateral release was performed around the patella. The patella width was measured and width was reproduced using freehand cut technique. The 32 x 8.5 millimeter symmetrical patella was used. 3 drill holes are made for the pegs. The tibia was exposed. An external tibial cutting guide was placed adjusted to make a perpendicular cut to the long axis of the tibia with appropriate amount of posterior slope and the proximal cut was made with the oscillating saw. All osteophytes were resected. The lamina corporate treasury analyst was used to assess ligamentous balance and the ligaments were balanced in extension and flexion. The tibia was reexposed and measured for a size D tibial component. This was externally rotated in line with the tibial tubercle and the fixation pins were drilled. The proximal tibia was fashioned with the drill and punch. The size 7 femoral trial was inserted. The trial MC inserts were used. The 1212 mm insert gave balanced ligaments through full range of motion. The patella tracked centrally. the trials were removed. The orthomix anesthetic cocktail was injected per protocol. The knee was then copiously irrigated with pulsatile lavage antibiotic solution with bacitracin. The final components were cemented with Simplex cement. The final components were Ashlie persona left 7 narrow CR femur, D tibia, 12 mm MC poly-and 32 x 8.5 patella. While the cement cured with the knee in full extension the Betadine soak was used per protocol. After the cement cured, the knee joint was copiously irrigated with antibiotic solution with bacitracin. 2 drains were brought out laterally and connected to a Hemovac. The quadriceps tendon and medial retinaculum were closed with interrupted [id number] #1 Vicryl sutures. The knee was taken through a full range of motion and repair was secure. The subcutaneous tissues were closed with 2-0 Vicryl sutures and skin was closed with surendra. Sterile dressings were applied and the patient tolerated the procedure well. Noah MARCOS my physician geriatric assistant, assisted in soft tissue retraction instrument management leg positioning the closure and will participate in the postoperative care of the patient. I attest to the content of the Intraoperative Record and any orders documented therein. Any exceptions are noted below.
--- NOTE | 2020-03-14 12:15 | Anesthesiology Progress Note ---
Date of Service March 14, 2020 Anesthesia Post Procedure Vital Signs Vital Signs: Temp Pulse Pulse Resp BP Pulse Ox 03/14/20 12:10 72 15 123/72 93 03/14/20 12:00 74 13 129/77 94 03/14/20 11:50 72 12 127/71 94 03/14/20 11:40 74 15 120/77 99 03/14/20 11:30 36.8 C 75 15 112/65 97 03/14/20 07:50 37.0 C 85 20 115/67 94 Pain Intensity Left Knee: Pain Intensity: 0 Transfer of Care Handoff Completed per policy Notes Mental Status: alert / awake / arousable and participated in evaluation Patient Amnestic to Procedure: Yes Nausea / Vomiting: adequately controlled Pain: adequately controlled Airway Patency, RR, SpO2: stable & adequate BP & HR: stable & adequate Hydration State: stable & adequate Anesthetic Complications: no major complications apparent
--- NOTE | 2020-03-14 12:32 | XRay Report ---
XR knee LT 1 or 2V routine HISTORY: 69 years-old Female Surgical Post Op left knee total joint arthroplasty COMPARISON: None TECHNIQUE: 2 views of the left knee FINDINGS: Left knee total joint arthroplasty and patella resurfacing. Anterior midline skin surendra are noted a long with expected postsurgical soft tissue swelling and deep tissue air with surgical drainage austin ter. Satisfactory alignment without acute fracture or retained foreign body. IMPRESSION: Left knee total joint arthroplasty and patella resurfacing with expected postoperative ch anges. ACT 112: Negative or not required by law. The above report was generated using voice recognition software. It may contain grammatical, syntax o r spelling errors. Electronically signed by: Bo Clemens M.D. 03/14/2020 12:30 PM
[2020-03-14] MEDS ORDERED: bisacodyL 10 MG SUPP PR PRN (12:56)
[2020-03-14] MEDS ORDERED: HYDROmorphone INJ 0.5 MG/0.5 ML SYR IV PRN (12:56)
[2020-03-14] MEDS ORDERED: MAGNESIUM HYDROXIDE SUSP 30 ML UDC PO PRN (12:56)
[2020-03-14] MEDS ORDERED: NALOXONE HCL 0.4 MG/1 ML VIAL/CARP IV PRN (12:56)
[2020-03-14] MEDS ORDERED: LORazepam 0.5 MG TAB PO PRN (12:56)
[2020-03-14] MEDS ORDERED: ONDANSETRON INJ 2 MG/ML 2 ML VIAL IV PRN (12:56)
[2020-03-14] MEDS: SODIUM CHLORIDE 0.9% 1000ML 1,000 ML IV SCH (13:15)
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
[2020-03-14] MEDS: ACETAMINOPHEN 500 MG TAB PO SCH ×2 (14:10→20:57)
[2020-03-14] MEDS: FERROUS GLUCONATE 324 MG TAB PO SCH (17:47)
[2020-03-14] MEDS: CLINDAMYCIN 600 MG in DEXTROSE 5% 50 ML IV SCH ×2 (17:53→23:36)
[2020-03-14] MEDS: DOCUSATE SODIUM 100 MG CAP PO SCH (20:24)
[2020-03-14] MEDS: ASPIRIN 81 MG ECTAB PO SCH (20:25)
[2020-03-14] MEDS: SENNA 8.6 MG TAB PO SCH (20:25)
[2020-03-14] MEDS: ATORVASTATIN 40 MG TAB PO SCH (20:57)
[2020-03-14] MEDS ORDERED: LORazepam 0.5 MG TAB PO STA (21:19)
[2020-03-14] MEDS: OXYCODONE HCL IR 5 MG TAB (IMMEDIATE RELEASE) PO PRN (22:29)
[2020-03-15] MEDS: SODIUM CHLORIDE 0.9% 1000ML 1,000 ML IV SCH (02:28)
[2020-03-15] MEDS: ACETAMINOPHEN 500 MG TAB PO SCH ×3 (05:06→21:43)
[2020-03-15 05:48] LABS: Hematocrit (blood only) 33.2 % (37-47); Hemoglobin 10.5 g/dL (12.0-16.0); Mean Corpuscular Hemoglobin 24.5 pg (25-34); Mean Corpuscular Hgb Conc 31.6 g/dL (32-36); Mean Corpuscular Volume 77.6 fL (80-100); Mean Platelet Volume 10.6 fL (7.4-10.4); Platelet Count 228 K/uL (130-400); RDW Coefficient of Variation 15.9 % (11.5-14.5); RDW Standard Deviation 45.2 fL (36.4-46.3); Red Blood Count 4.28 M/uL (4.2-5.4); White Blood Count 10.41 K/uL (4.8-10.8)
[2020-03-15] MEDS ORDERED: CLINDAMYCIN 600 MG/54 ML BAG IV SCH (06:00)
[2020-03-15 06:18] LABS: BUN Creatinine Ratio 16.7 (10-20); Calcium 8.5 mg/dl (8.5-10.1); Creatinine Clr Calc Pharmacy 38.1 ml/min; Est GFR (African American) 46.8; Est GFR (Non-African American) 40.4; Potassium 4.4 mmol/L (3.5-5.1)
[2020-03-15] MEDS: OXYCODONE HCL IR 5 MG TAB (IMMEDIATE RELEASE) PO PRN (07:38)
[2020-03-15] MEDS: FERROUS GLUCONATE 324 MG TAB PO SCH ×2 (07:39→18:06)
--- NOTE | 2020-03-15 07:40 | Anesthesiology Progress Note ---
Date of Service March 15, 2020 Anesthesia Post Procedure Vital Signs Vital Signs: Temp Pulse Pulse Pulse Resp BP Pulse Ox 03/15/20 02:50 36.7 C 74 16 127/72 94 03/14/20 22:35 36.9 C 69 16 132/72 96 03/14/20 19:52 36.4 C L 72 16 113/64 95 03/14/20 15:42 36.4 C L 67 16 130/78 94 03/14/20 14:53 70 16 116/69 91 03/14/20 13:45 36.8 C 70 14 117/68 97 03/14/20 13:14 67 16 122/75 93 03/14/20 12:45 36.6 C 74 14 126/74 95 03/14/20 12:20 36.9 C 73 17 120/70 96 03/14/20 12:10 72 15 123/72 93 03/14/20 12:00 74 13 129/77 94 03/14/20 11:50 72 12 127/71 94 03/14/20 11:40 74 15 120/77 99 03/14/20 11:30 36.8 C 75 15 112/65 97 03/14/20 07:50 37.0 C 85 20 115/67 94 Pain Intensity Left Knee: Pain Intensity: 0 Notes Mental Status: alert / awake / arousable and participated in evaluation Patient Amnestic to Procedure: Yes Nausea / Vomiting: adequately controlled Pain: adequately controlled Airway Patency, RR, SpO2: stable & adequate BP & HR: stable & adequate Hydration State: stable & adequate Neuraxial Anesthesia: was administered and sensory block resolved Anesthetic Complications: no major complications apparent and Pt Satisfied with anesthetic care
--- NOTE | 2020-03-15 08:00 | Hospitalist Progress Note ---
Date of Service March 15, 2020 Assessment & Plan (1) Status post total left knee replacement: This is a 69yo F with a PMH of HTN, HLD, MDD, CKD III, GERD who is POD #1 s/p L TKA by Dr. Bay. POD #1 s/p L TKA by Dr. Bay Pt is doing well post-operatively Per ortho for pain control, wound care, anticoagulation and activities Monitor H&H (pre-op hgb 11.6, EBL: 5 ml; hemovac 225ml). h/H 10.5 and 33.2 Continue incentive spirometry, PT/OT when appropriate (2) Anemia: microcytic anemia ( hgb 06/2019 12.4) Monitor H&H (pre-op hgb 11.6, EBL: 5 ml; hemovac 225ml). h/H 10.5 and 33.2 on ferrous sulfate as outpt will order iron studies for a.m. with follow up as out (3) Hypertension: blood pressure controlled Continue metoprolol (4) Pre-diabetes: a1c 6.4 03/10/2019 repeat a1c in am. monitor FBS (5) Breast cancer: History of invasive ductal carcinoma of breast, s/p lumpectomy and XRT in 2014 Continue Arimidex (6) CKD (chronic kidney disease) stage 3, GFR 30-59 ml/min: baseline ~ 1.1 Bun/Cr 22 and 1.33 pt tolerating oral diet, avoid nephrotoxic agents repeat bmp in a.m. (7) Depression: mood stable Continue SSRI, Wellbutrin (8) Anxiety: Continue SSRI, home dose Ativan PRN (9) GERD (gastroesophageal reflux disease): Continue PPI PCP: [place] Dispo: Per primary service Patient seen in collaboration with . Please see addendum. Thank you for this consultation. We will follow the patient with you during their hospital stay. You can reach a [facility] via pager @ [phone]. Admission and Anticipated Discharge Date Admission Date: March 14, 2020 Supervising Physician Co-Signing Physician Notes Patient is seen and examined at bedside. No significant pain at surgical site. +Flatus but no BM yet. Denies any chest pain, shortness of breath, dizziness, nausea, abdominal pain. On exam patient is moderately built and nourished, no apparent distress, normocephalic atraumatic, lungs--normal breath sounds, clear to auscultation, S1-S2, systolic murmur, no pedal edema, abdomen soft, nontender, normal bowel sounds, left knee surgical site in dressing, grossly no focal neurological deficits. S/P left knee total arthroplasty by Dr. Bay POD#1. Acute on chronic postop, blood loss anemia. History of iron deficiency anemia. Continue iron supplements(recently started by PCP 2 weeks ago). No indication for blood transfusion currently. Activity, DVT prophylaxis, wound care, pain control as per primary team. No bleeding issues currently. Continue bowel regimen to prevent constipation. Monitor with daily CBC. Counseled on prediabetes. I personally reviewed the record. Patient is interviewed and examined at bedside. Patient's care is coordinated with Leilani Van PA-C. Please refer to the documentation above for details of patient's presentation and for discussion of other issues. Subjective Patient was seen and examined in 321. She is POD #1 left total knee arthroplasty. Last evening she had a significant amount of restlessness to the left leg. She requested narcotic which improved symptoms and she was able to get decent night sleep. This morning she denies any fever, chills, sweats, lightheadedness, dizziness, chest pain, shortness of breath, nausea, vomiting, abdominal pain. She is passing flatus. Initially yesterday she had some difficulty passing urine, but this has returned to normal. She denies any dysuria, increased urgency or frequency with urination. She is using her incentive spirometer and her appetite is okay. Review of Systems Review of Systems: All systems reviewed & are unremarkable except as noted in HPI & below Physical Exam Physical Exam: Gen: WD/WN, female, NAD, A&O x3 HEENT: Normocephalic, atraumatic, conjunctivae moist, sclerae anicteric, mucous membranes moist. Lung: Clear to Auscultation bilaterally, no wheezes/rales/rhonchi Heart: Regular rate, regular rhythm, 2/6 DINESH noted LUSB, no rubs, or gallops Abdomen: Soft, NT, ND +BS x 4 Extremities: No edema, teds in place, L TKA dressing CDI, Hemovac in place Skin: Warm, no rash, negative turgor. Results & Data Results & Data ([facility]) Vital Signs (Past 12 Hours) Vital Signs Temp Pulse Resp BP Pulse Ox 03/15/20 02:50 36.7 C 74 16 127/72 94 03/14/20 22:35 36.9 C 69 16 132/72 96 Laboratory Results Short CBC 03/15/20 Range/Units 05:23 WBC 10.41 (4.8-10.8) K/uL Hgb 10.5 L (12.0-16.0) g/dL Hct 33.2 L (37-47) % Plt Count 228 (130-400) K/uL BMP 03/15/20 05:23 Sodium 141 Potassium 4.4 Chloride 111 H Carbon Dioxide 23 BUN 22 H Creatinine 1.33 H Glucose 125 H Calcium 8.5 Diagnostic Findings echo 01/202020 grade 1 diastolic dysfunction, mild aortic valve stenosis, EF 63% Medications Administered Acetaminophen (Acetaminophen 500 Mg Tab) 1,000 mg PO Q8 EZEKIEL Stop: 04/13/20 13:59 Last Admin: 03/15/20 05:06 Dose: 1,000 mg Documented by: [id number] Admin: 03/14/20 20:57 Dose: 1,000 mg Documented by: [id number] Admin: 03/14/20 14:10 Dose: 1,000 mg Documented by: [id number] Aspirin (Aspirin 81 Mg Ectab) 81 mg PO BID EZEKIEL Stop: 04/13/20 20:59 Last Admin: 03/14/20 20:25 Dose: 81 mg Documented by: [id number] Atorvastatin Calcium (Atorvastatin 40 Mg Tab) 40 mg PO PM EZEKIEL Stop: 04/13/20 20:59 Last Admin: 03/14/20 20:57 Dose: 40 mg Documented by: [id number] Docusate Sodium (Docusate Sodium 100 Mg Cap) 100 mg PO BID EZEKIEL Stop: 04/13/20 20:59 Last Admin: 03/14/20 20:24 Dose: 100 mg Documented by: [id number] Ferrous Gluconate (Ferrous Gluconate 324 Mg Tab) 324 mg PO BIDM EZEKIEL Stop: 04/13/20 16:59 Last Admin: 03/15/20 07:39 Dose: 324 mg Documented by: [id number] Admin: 03/14/20 17:47 Dose: 324 mg Documented by: [id number] Hydromorphone HCl (Hydromorphone Inj 0.5 Mg/0.5 Ml Syr) 0.5 mg IV Q4H PRN PRN Reason: Pain or Pre PT Stop: 03/28/20 12:55 Last Admin: 03/14/20 23:35 Dose: 0.5 mg Documented by: [id number] Oxycodone HCl (Oxycodone Hcl Ir 5 Mg Tab (Immediate Release)) 5 - 10 mg PO Q4H PRN PRN Reason: Pain or Pre PT Stop: 03/28/20 12:55 Last Admin: 03/15/20 07:38 Dose: 10 mg Documented by: [id number] Admin: 03/14/20 22:29 Dose: 10 mg Documented by: [id number] Sennosides (Senna 8.6 Mg Tab) 17.2 mg PO HS EZEKIEL Stop: 04/13/20 20:59 Last Admin: 03/14/20 20:25 Dose: 17.2 mg Documented by: [id number] Discontinued Medications Acetaminophen (Acetaminophen 500 Mg Tab) 1,000 mg PO PREOP EZEKIEL Stop: 03/14/20 18:00 Last Admin: 03/14/20 08:17 Dose: 1,000 mg Documented by: [id number] Bacitracin (Bacitracin Inj 50,000 Unit Vial) Confirm Administered Dose 50,000 units .ROUTE .STK-MED ONE Stop: 03/14/20 06:59 Last Admin: 03/14/20 10:04 Dose: 50,000 units Documented by: [id number] Celecoxib (Celebrex 200 Mg Cap) 200 mg PO PREOP EZEKIEL Stop: 03/14/20 18:00 Last Admin: 03/14/20 08:16 Dose: 200 mg Documented by: [id number] Clindamycin Phosphate (Clindamycin 600 Mg/54 Ml D5w) Confirm Administered Dose 600 mg IV .STK-MED ONE Stop: 03/14/20 08:49 Last Admin: 03/14/20 09:23 Dose: 600 mg Documented by: [id number] Dexamethasone (Dexamethasone 4 Mg Tab) 8 mg PO PREOP EZEKIEL Stop: 03/14/20 18:00 Last Admin: 03/14/20 08:16 Dose: 8 mg Documented by: [id number] Famotidine (Famotidine 20 Mg Tab) 20 mg PO PREOP EZEKIEL Stop: 03/14/20 18:00 Last Admin: 03/14/20 08:16 Dose: 20 mg Documented by: [id number] Gabapentin (Gabapentin 300 Mg Cap) 300 mg PO PREOP EZEKIEL Stop: 03/14/20 18:00 Last Admin: 03/14/20 08:15 Dose: 300 mg Documented by: [id number] Vancomycin HCl 1,250 mg/ (Sodium Chloride) 275 mls @ 250 mls/hr IV PREOP EZEKIEL Stop: 03/14/20 12:00 Last Infusion: 03/14/20 08:50 Dose: 0 mls/hr Documented by: [id number] Admin: 03/14/20 07:52 Dose: 250 mls/hr Documented by: [id number] Ropivacaine 150 mg/Bupivacaine HCl 30 ml/Epinephrine HCl 0.15 mg/Ketorolac Tromethamine 30 mg/Dexamethasone 4 mg/ Ketamine HCl 10 mg/ Clonidine HCl 100 mcg / Sodium Chloride 93.35 mls @ 0 mls/hr INSTIL PREOP EZEKIEL Stop: 03/14/20 06:01 Last Admin: 03/14/20 10:04 Dose: 93.35 mls/hr Documented by: [id number] Tranexamic Acid (Tranexamic Acid / 0.7% Nacl) 1,000 mg in 100 mls @ 600 mls/hr IV TODAY@0600 [facility] Stop: 03/14/20 18:00 Last Infusion: 03/14/20 09:20 Dose: 0 mls/hr Documented by: [id number] Admin: 03/14/20 09:09 Dose: 600 mls/hr Documented by: [id number] Tranexamic Acid (Tranexamic Acid / 0.7% Nacl) 1,000 mg in 100 mls @ 600 mls/hr IV TODAY@0600 [facility] Stop: 03/14/20 18:00 Last Infusion: 03/14/20 11:20 Dose: 0 mls/hr Documented by: [id number] Admin: 03/14/20 11:00 Dose: 600 mls/hr Documented by: [id number] Lactated Ringer's (Lr) 1,000 mls @ 15 mls/hr IV .Q24H [facility] Stop: 04/13/20 08:29 Last Infusion: 03/14/20 09:23 Dose: 0 mls/hr Documented by: [id number] Admin: 03/14/20 07:52 Dose: 15 mls/hr Documented by: [id number] Lactated Ringer's (Lr) 500 mls @ 999 mls/hr IV .Q31M ONE Stop: 03/14/20 09:15 Last Admin: 03/14/20 14:12 Dose: Not Given Documented by: [id number] Clindamycin Phosphate 600 mg/ (Dextrose) 54 mls @ 100 mls/hr IV Q8H EZEKIEL Stop: 03/15/20 02:03 Last Infusion: 03/15/20 00:09 Dose: 0 mls/hr Documented by: [id number] Admin: 03/14/20 23:36 Dose: 100 mls/hr Documented by: [id number] Infusion: 03/14/20 18:40 Dose: 0 mls/hr Documented by: [id number] Admin: 03/14/20 17:53 Dose: 100 mls/hr Documented by: [id number] Sodium Chloride (Nss 1000ml) 1,000 mls @ 75 mls/hr IV .[id number] EZEKIEL Stop: 03/15/20 06:00 Last Admin: 03/15/20 02:28 Dose: Not Given Documented by: [id number] Infusion: 03/15/20 02:28 Dose: 0 mls/hr Documented by: [id number] Infusion: 03/15/20 00:13 Dose: 75 mls/hr Documented by: [id number] Infusion: 03/14/20 23:40 Dose: 0 mls/hr Documented by: [id number] Admin: 03/14/20 13:15 Dose: 75 mls/hr Documented by: [id number] Lorazepam (Lorazepam 0.5 Mg Tab) 0.5 mg PO NOW STA Stop: 03/14/20 21:20 Last Admin: 03/14/20 21:31 Dose: 0.5 mg Documented by: [id number] Metoclopramide HCl (Metoclopramide Hcl 10 Mg Tablet) 10 mg PO PREOP EZEKIEL Stop: 03/14/20 18:00 Last Admin: 03/14/20 08:17 Dose: 10 mg Documented by: [id number] Miscellaneous (Ortho Joint Anesthetic ) Confirm Administered Dose 1 ea .ROUTE .STK-MED ONE Stop: 03/14/20 06:59 Last Admin: 03/14/20 10:05 Dose: Not Given Documented by: [id number] (1) Breast cancer Breast location: central portion of breast Estrogen receptor status: positive Laterality: left Patient sex: female Qualified Code(s): C50.112 - Malignant neoplasm of central portion of left female breast; Z17.0 - Estrogen receptor positive status [ER+]
[2020-03-15] MEDS: MULTIVITAMIN TAB PO SCH (08:59)
[2020-03-15] MEDS: BuPROPion XL 300 MG TABCR PO SCH (09:00)
[2020-03-15] MEDS: ASPIRIN 81 MG ECTAB PO SCH ×2 (09:00→20:20)
[2020-03-15] MEDS: METOPROLOL SUCC 25MG EXT REL TAB PO SCH (09:00)
[2020-03-15] MEDS: DOCUSATE SODIUM 100 MG CAP PO SCH ×2 (09:00→20:19)
[2020-03-15] MEDS: PANTOprazole 40 MG TAB PO SCH (09:00)
[2020-03-15] MEDS ORDERED: FERROUS SULFATE 325 MG TAB PO SCH (09:00)
[2020-03-15] MEDS: SERTRALINE HCL 100 MG TABLET PO SCH (09:01)
[2020-03-15] MEDS: ANASTROZOLE 1 MG TAB PO SCH (09:04)
[2020-03-15] MEDS: ASCORBIC ACID 500 MG TAB PO SCH (09:14)
--- NOTE | 2020-03-15 09:17 | Orthopedic Progress Note ---
Date of Service March 15, 2020 Assessment & Plan (1) Status post total left knee replacement: Postop day 1 status post left total knee arthroplasty. PT/OT protocols. Weightbearing as tolerated DVT prophylaxis with aspirin p.o. twice daily, SCDs, ÓSCAR quiñonez Pain management as written. SHARITA planning-outpatient PT upon discharge Admission and Anticipated Discharge Date Admission Date: March 14, 2020 Subjective Postop day 1 Patient currently sitting up in bed. Awake and alert. States she is having some soreness in the knee this morning but is tolerating well. No other complaints at this time. Denies shortness of breath, chest pain, lightheadedness. Physical Exam Physical Exam: Dressings are clean, dry, and intact. Prevena external wound VAC is functioning. No overt drainage noted in the tubing. Hemovac drainage was 75 cc from the previous shift. Calves are soft and nontender. Neurovascular intact. Toes are mobile. She is able to do straight leg raise this morning. Results & Data ([facility]) Vital Signs (Past 12 Hours) Vital Signs Temp Pulse Resp BP Pulse Ox 03/15/20 09:02 36.9 C 73 18 149/77 H 96 03/15/20 02:50 36.7 C 74 16 127/72 94 03/14/20 22:35 36.9 C 69 16 132/72 96 Laboratory Results Laboratory Results WBC 10.41 K/uL (4.8-10.8) 03/15/20 05:23 RBC 4.28 M/uL (4.2-5.4) 03/15/20 05:23 Hgb 10.5 g/dL (12.0-16.0) L 03/15/20 05:23 Hct 33.2 % (37-47) L 03/15/20 05:23 MCV 77.6 fL (80-100) L 03/15/20 05:23 MCH 24.5 pg (25-34) L 03/15/20 05:23 MCHC 31.6 g/dL (32-36) L 03/15/20 05:23 RDW Std Deviation 45.2 fL (36.4-46.3) 03/15/20 05:23 RDW Coeff of Beny 15.9 % (11.5-14.5) H 03/15/20 05:23 Plt Count 228 K/uL (130-400) 03/15/20 05:23 MPV 10.6 fL (7.4-10.4) H 03/15/20 05:23 Immature Gran % (Auto) 0.2 % 02/09/20 15:14 Neut % (Auto) 50.5 % 02/09/20 15:14 Lymph % (Auto) 36.5 % 02/09/20 15:14 Bay % (Auto) 10.0 % 02/09/20 15:14 Eos % (Auto) 2.4 % 02/09/20 15:14 Baso % (Auto) 0.4 % 02/09/20 15:14 Neut # (Auto) 2.48 K/uL (1.4-6.5) 02/09/20 15:14 Lymph # (Auto) 1.79 K/uL (1.2-3.4) 02/09/20 15:14 Bay # (Auto) 0.49 K/uL (0.11-0.59) 02/09/20 15:14 Eos # (Auto) 0.12 K/uL (0-0.5) 02/09/20 15:14 Baso # (Auto) 0.02 K/uL (0-0.2) 02/09/20 15:14 Immature Gran # (Auto) 0.01 K/uL (0.00-0.02) 02/09/20 15:14 PT 10.7 Seconds (9.0-12.0) 02/09/20 15:14 INR 1.0 (0.9-1.1) 02/09/20 15:14 APTT 27.0 Seconds (21.0-31.0) 02/09/20 15:14 PTT Ratio 1.0 02/09/20 15:14 Sodium 141 mmol/L (136-145) 03/15/20 05:23 Potassium 4.4 mmol/L (3.5-5.1) 03/15/20 05:23 Chloride 111 mmol/L (98-107) H 03/15/20 05:23 Carbon Dioxide 23 mmol/L (21-32) 03/15/20 05:23 Anion Gap 7.0 (3-11) 03/15/20 05:23 BUN 22 mg/dl (7-18) H 03/15/20 05:23 Creatinine 1.33 mg/dl (0.6-1.2) H 03/15/20 05:23 Est Cr Clr Drug Dosing 38.1 ml/min 03/15/20 05:23 Est GFR ( Amer) 46.8 03/15/20 05:23 Est GFR (Non-Af Amer) 40.4 03/15/20 05:23 BUN/Creatinine Ratio 16.7 (-20) 03/15/20 05:23 Glucose 125 mg/dl (70-99) H 03/15/20 05:23 Estimat Average Glucose 128 mg/dl 02/09/20 15:14 Hemoglobin A1c 6.1 % (4.5-5.6) H 02/09/20 15:14 Calcium 8.5 mg/dl (8.5-10.1) 03/15/20 05:23 Albumin 3.5 gm/dl (3.4-5.0) 02/09/20 15:14 Specimen Hemolysis 03/15/20 05:23 Urine Color Yellow 02/09/20 15:14 Urine Appearance Clear (Clear) 02/09/20 15:14 Urine pH 5.0 (4.5-7.5) 02/09/20 15:14 Ur Specific [place] 1.017 (1.000-1.030) 02/09/20 15:14 Urine Protein Negative (Negative) 02/09/20 15:14 Urine Glucose (UA) Negative (Negative) 02/09/20 15:14 Urine Ketones Negative (Negative) 02/09/20 15:14 Urine Blood 1+ (Negative) H 02/09/20 15:14 Urine Nitrite Negative (Negative) 02/09/20 15:14 Urine Bilirubin Negative (Negative) 02/09/20 15:14 Urine Urobilinogen Negative (Negative) 02/09/20 15:14 Ur Leukocyte Esterase Negative (Negative) 02/09/20 15:14 Urine WBC (Auto) 0 /hpf (0-5) 02/09/20 15:14 Urine RBC (Auto) 0-4 /hpf (0-4) 02/09/20 15:14 U Hyaline Cast (Auto) 0 /lpf (0-5) 02/09/20 15:14 U Epithel Cells (Auto) 0-5 /lpf (0-5) 02/09/20 15:14 Urine Bacteria (Auto) Negative (Negative) 02/09/20 15:14 Hepatitis C Ab Screen Neg (Neg) 03/14/20 07:42 Blood Type A Negative 02/09/20 15:14 Antibody Screen NEGATIVE 02/09/20 15:14
[2020-03-15] MEDS: ATORVASTATIN 40 MG TAB PO SCH (20:20)
[2020-03-15] MEDS: SENNA 8.6 MG TAB PO SCH (20:20)
[2020-03-16] MEDS: ACETAMINOPHEN 500 MG TAB PO SCH (06:04)
[2020-03-16 06:34] LABS: Hemoglobin 10.9 g/dL (12.0-16.0); Mean Corpuscular Hemoglobin 23.7 pg (25-34); Mean Corpuscular Hgb Conc 30.3 g/dL (32-36); Mean Corpuscular Volume 78.4 fL (80-100); Mean Platelet Volume 10.5 fL (7.4-10.4); Platelet Count 224 K/uL (130-400); RDW Coefficient of Variation 16.3 % (11.5-14.5); RDW Standard Deviation 46.8 fL (36.4-46.3); Red Blood Count 4.59 M/uL (4.2-5.4); White Blood Count 6.44 K/uL (4.8-10.8)
[2020-03-16 07:00] LABS: BUN Creatinine Ratio 17.6 (10-20); Calcium 8.7 mg/dl (8.5-10.1); Creatinine Clr Calc Pharmacy 46.1 ml/min; Est GFR (African American) 58.9; Est GFR (Non-African American) 50.8; Potassium 4.1 mmol/L (3.5-5.1)
[2020-03-16 07:05] LABS: Ferritin 41.7 ng/ml (8-388)
[2020-03-16 07:10] LABS: Estimated Average Glucose 126 mg/dl
[2020-03-16] MEDS: OXYCODONE HCL IR 5 MG TAB (IMMEDIATE RELEASE) PO PRN (07:38)
[2020-03-16] MEDS: SERTRALINE HCL 100 MG TABLET PO SCH (08:40)
[2020-03-16] MEDS: ANASTROZOLE 1 MG TAB PO SCH (08:40)
[2020-03-16] MEDS: FERROUS GLUCONATE 324 MG TAB PO SCH (08:41)
[2020-03-16] MEDS: ASPIRIN 81 MG ECTAB PO SCH (08:41)
[2020-03-16] MEDS: PANTOprazole 40 MG TAB PO SCH (08:41)
[2020-03-16] MEDS: DOCUSATE SODIUM 100 MG CAP PO SCH (08:41)
[2020-03-16] MEDS: ASCORBIC ACID 500 MG TAB PO SCH (08:41)
[2020-03-16] MEDS: METOPROLOL SUCC 25MG EXT REL TAB PO SCH (08:41)
[2020-03-16] MEDS: BuPROPion XL 300 MG TABCR PO SCH (08:41)
[2020-03-16] MEDS: MULTIVITAMIN TAB PO SCH (08:41)
--- NOTE | 2020-03-16 09:28 | Orthopedic Progress Note ---
Date of Service March 16, 2020 Assessment & Plan (1) Status post total left knee replacement: Postop day 2 status post left total knee arthroplasty. PT/OT protocols. Weightbearing as tolerated DVT prophylaxis with aspirin p.o. twice daily, SCDs, ÓSCAR quiñonez Pain management as written. DC planning-outpatient PT upon discharge Plan for d/c home today. Admission and Anticipated Discharge Date Admission Date: March 14, 2020 Subjective Postop day 2 Patient currently sitting up in bed. Awake and alert. Pain is controlled in the knee today. She is having some pain near her achilles on the left side but only with motion of the ankle. No other complaints at this time. Denies shortness of breath, chest pain, lightheadedness. Physical Exam Constitutional: WD/WN, vitals as above Musculoskeletal: Knee: + surgical incision (Left knee: Prevena dressing in place and functioning. ); knee normal to inspection, no deformity, no skin erythema, no ecchymosis, no surgical drain present, no valgus alignment and no varus alignment Skin: no rashes, warm and dry Neurologic: normal touch/pain/proprioception Psychiatric: A+Ox3, euthymic affect Speech: normal rate/rhythm/volume of speech Results & Data ([facility]) Vital Signs (Past 12 Hours) Vital Signs Temp Pulse Resp BP Pulse Ox 03/16/20 09:12 36.5 C 60 18 149/78 H 99 03/16/20 07:57 60 149/78 H 03/16/20 07:49 36.5 C 57 L 18 189/102 H 99 03/15/20 23:58 37.0 C 63 16 116/70 95
--- NOTE | 2020-03-16 13:40 | Hospitalist Progress Note ---
Date of Service March 16, 2020 Assessment & Plan (1) Status post total left knee replacement: Patient is a 69 yr female with H/O HTN, HLD, MDD, CKD III, GERD who was consulted for postop medical management after having left total knee arthroplasty by Dr. Bay. S/P Left TKA by Dr. Bay POD#2 Hemoglobin fairly stable Doing well postop Had PT OT eval Activity, wound care, DVT prophylaxis as per primary team Continue bowel regimen to prevent constipation (2) Anemia: Iron deficiency anemia Recently started on iron supplements by PCP Continue iron supplements (3) Hypertension: Stable Continue metoprolol (4) Pre-diabetes: HbA1C:6.0 Counseled on lifestyle changes (5) Breast cancer: H/O Invasive ductal carcinoma of breast, s/p lumpectomy and XRT in 2014 Continue Arimidex (6) CKD (chronic kidney disease) stage 3, GFR 30-59 ml/min: Baseline ~ 1.1 Cr at baseline Monitor renal function Avoid nephrotoxic agents as able (7) Depression: mood stable Continue SSRI, Wellbutrin (8) Anxiety: Continue SSRI, home dose Ativan PRN (9) GERD (gastroesophageal reflux disease): Continue PPI Disposition: Per primary service Admission and Anticipated Discharge Date Admission Date: March 14, 2020 Subjective Patient is seen and examined present Left knee incisional pain is controlled Denies any chest pain, shortness of breath, dizziness, nausea, abdominal pain Offers no other complaints Plan to be discharged home today Review of Systems Review of Systems: All systems reviewed & are unremarkable except as noted in HPI & below Physical Exam Physical Exam: Physical Exam: Vitals signs as noted above General Appearance:Moderately built and nourished, no apparent distress Head: normocephalic, Atraumatic Eyes: normal inspection, EOMI Neck: supple, Trachea midline Respiratory/Chest: Normal breath sounds, CTA, No accessory muscle use Cardiovascular: S1, S2, + systolic murmur Abdomen/GI:Soft, Non tender, Bowel sounds present Extremities/Musculoskelatal:normal inspection, no edema, Left knee surgical site in dressing Neurologic/Psych:AAOX3, grossly no focal neurological deficits Skin: normal color, warm Results & Data Results & Data ([facility]) Vital Signs (Past 12 Hours) Vital Signs Temp Pulse Resp BP Pulse Ox 03/16/20 09:12 36.5 C 60 18 149/78 H 99 03/16/20 07:57 60 149/78 H 03/16/20 07:49 36.5 C 57 L 18 189/102 H 99 Laboratory Results Short CBC 03/16/20 Range/Units 06:15 WBC 6.44 (4.8-10.8) K/uL Hgb 10.9 L (12.0-16.0) g/dL Hct 36.0 L (37-47) % Plt Count 224 (130-400) K/uL BMP 03/16/20 06:15 Sodium 144 Potassium 4.1 Chloride 113 H Carbon Dioxide 27 BUN 19 H Creatinine 1.10 Glucose 83 Calcium 8.7 (1) Breast cancer Breast location: central portion of breast Estrogen receptor status: positive Laterality: left Patient sex: female Qualified Code(s): C50.112 - Malignant neoplasm of central portion of left female breast; Z17.0 - Estrogen receptor positive status [ER+]
--- NOTE | 2020-03-27 02:42 | Discharge Summary (DS) ---
HISTORY OF PRESENT ILLNESS: This is a 69-year-old female patient of Dr. Bay'fausto complaining of chronic left knee pain, longstanding, now progressively getting worse. The patient failed conservative treatment and has elected to proceed with a left total knee arthroplasty. PAST MEDICAL HISTORY: Congestive heart failure, coronary artery disease status post an NH, heart murmur, hypertension, hypercholesterolemia, sleep apnea, anxiety, anemia, osteoarthritis, acid reflux, obesity, breast cancer. POSTOPERATIVE COURSE: The patient underwent a left total knee arthroplasty on 03/14/2020. She was followed closely with medical consultation, DVT prophylaxis in the form of aspirin, physical therapy and pain control. The patient did very well postoperatively. She was stable with all her comorbidities and was discharged on postoperative day #2. PHYSICAL EXAMINATION: On discharge, left knee superficial wound VAC was clean, dry and intact and functioning. She had no calf tenderness. Negative Homans sign. Toes and ankle were mobile. Neurologically and neurovascularly intact left lower extremity. DIAGNOSES: Status post left total knee arthroplasty with application of wound VAC, history of congestive heart failure, coronary artery disease status post an NH, heart murmur, hypertension, hypercholesterolemia, sleep apnea, anxiety, anemia, osteoarthritis, acid reflux, obesity and breast cancer. PLAN: The patient was discharged home with outpatient physical therapy. She will continue her preadmission medications with the addition of aspirin for DVT prophylaxis and pain medication as needed. The patient will follow up as scheduled as an outpatient.
== END 2020-03-16 13:09 | disposition home or self-care (01) ==
LOC: ASU 07:15 → 3E 07:15